=== PATIENT | male | born 1965 | race Caucasian/White ===

== ENCOUNTER → 2016-07-21 | Outpatient (REF) | payer BC ==
[2016-07-21 16:10] LABS: URIC ACID 5.8 MG/DL (3.5-7.2)
[2016-07-21 16:18] LABS: BASO % 0.5 % (0.0-1.0); EOS # 0.2 K/mm3 (0.0-0.50); EOS % 2.8 % (0.0-3.0); LARGE UNSTAINED CELL # 0.1 K/mm3 (0.0-0.4); LARGE UNSTAINED CELL % 1.5 % (0.0-4.0); LYMPH # 2.7 K/mm3 (1.5-4.5); MEAN CORPUSCULAR HEMOGLOBIN 29.1 pg (27.0-33.0); MEAN CORPUSCULAR HGB CONC 33.2 g/dl (32.0-36.5); MEAN CORPUSCULAR VOLUME 87.7 fl (80.0-96.0); MONO # 0.7 K/mm3 (0.0-0.8); MONO % 8.5 % (0.0-5.0); NEUTROPHILS % 57.6 % (36.0-66.0); PLATELET COUNT, AUTOMATED 433 k/mm3 (150-450); RED CELL DISTRIBUTION WIDTH 12.7 % (11.5-14.5); WHITE BLOOD COUNT 8.7 K/mm3 (4.0-10.0)
[2016-07-21 17:02] LABS: ERYTHROCYTE SEDIMENTATION RATE 4 mm/hr (0-20)
[2016-07-24 00:08] LABS: Lyme Disease IgG/IgM Antibodie <0.91 ISR (0.00-0.90); Lyme Disease IgM Ab Quantitati <0.80 index (0.00-0.79)
== END ==
LOC: M LABDRAW1 15:38
PROVIDERS: ATTEND Physician Assistant Surgical
DX: M79.645 Pain in left finger(s) (principal)

== ENCOUNTER → 2016-08-04 | Outpatient (REF) | payer BC ==
[2016-08-04 14:14] LABS: ALBUMIN 3.7 GM/DL (3.2-5.2); ALBUMIN/GLOBULIN RATIO 1.12 (1.00-1.93); ALKALINE PHOSPHATASE 52 U/L (45-117); ALT/SGPT 47 U/L (12-78); ANION GAP 8 MEQ/L (8-16); AST/SGOT 21 U/L (15-37); BILIRUBIN,TOTAL 0.6 MG/DL (0.2-1.0); BLOOD UREA NITROGEN 13 MG/DL (7-18); CALCIUM LEVEL 9.1 MG/DL (8.5-10.1); CARBON DIOXIDE LEVEL 28 MEQ/L (21-32); CHLORIDE LEVEL 103 MEQ/L (98-107); CHOLESTEROL LEVEL 216 MG/DL (<200); CREATININE FOR GFR 0.92 MG/DL (0.70-1.30); GLOMERULAR FILTRATION RATE > 60.0 (>56); GLUCOSE, FASTING 126 MG/DL (70-105); POTASSIUM SERUM 4.4 MEQ/L (3.5-5.1); SODIUM LEVEL 139 MEQ/L (136-145); TRIGLYCERIDES LEVEL 155 MG/DL (<150)
== END ==
LOC: M SFHCADAM 08:19
PROVIDERS: ATTEND Physician Assistant
DX: R73.01 Impaired fasting glucose (principal); E78.4 Other hyperlipidemia; E55.9 Vitamin D deficiency, unspecified

== ENCOUNTER 2016-10-08 12:10 | Emergency (ER) | payer OTHER, BC ==
[~2016-10-08] VITALS: Ht 177.8 cm; Wt 133.3 kg
[2016-10-08 12:10] VITALS: BP 133/70
[2016-10-08] MEDS ORDERED: NAPR500T PO (13:13)
--- NOTE | 2016-10-08 13:39 | REP ---
REASON: Trauma. COMPARISON: None. 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 There is no acute fracture or dislocation. IMPRESSION: Mild chronic changes. Signed by Emilio Wu DO 10/08/2016 02:18 P
== END 2016-10-08 13:59 | disposition home or self-care (01) ==
LOC: M ED 13:29
DX: S46.901A Unspecified injury of unspecified muscle, fascia and tendon at shoulder and upper arm level, right arm, initial encounter (principal); X50.0XXA Overexertion from strenuous movement or load, initial encounter; Y92.89 Other specified places as the place of occurrence of the external cause; Y93.89 Activity, other specified; Y99.0 Civilian activity done for income or pay; Z88.6 Allergy status to analgesic agent

== ENCOUNTER 2017-05-09 10:51 | Emergency (ER) | payer OTHER, BC | END 2017-05-09 13:29 | disposition home or self-care (01) | LOC: M ED 10:51 | DX: M25.512 Pain in left shoulder (principal); S16.1XXA Strain of muscle, fascia and tendon at neck level, initial encounter; W17.89XA Other fall from one level to another, initial encounter; Y92.481 Parking lot as the place of occurrence of the external cause; Y93.89 Activity, other specified; M19.012 Primary osteoarthritis, left shoulder; Z88.8 Allergy status to other drugs, medicaments and biological substances | CPT/HCPCS: 73030 ==

== ENCOUNTER → 2018-12-20 | Outpatient (REF) | payer BC, OTHER ==
[~2018-12-20] MED LIST: NAPR-837 PO
[2018-12-20 14:17] LABS: MEAN CORPUSCULAR HEMOGLOBIN 30.1 pg (27.0-33.0); MEAN CORPUSCULAR HGB CONC 33.3 g/dl (32.0-36.5); MEAN CORPUSCULAR VOLUME 90.4 fl (80.0-96.0); PLATELET COUNT, AUTOMATED 418 10^3/uL (150-450); RED BLOOD COUNT 4.98 10^6/uL (4.30-6.10); WHITE BLOOD COUNT 7.7 10^3/uL (4.0-10.0)
[2018-12-20 14:35] LABS: ALBUMIN 3.7 GM/DL (3.2-5.2); ALT/SGPT 35 U/L (12-78); BILIRUBIN,TOTAL 0.3 MG/DL (0.2-1.0); BLOOD UREA NITROGEN 20 MG/DL (7-18); CALCIUM LEVEL 9.5 MG/DL (8.5-10.1); CARBON DIOXIDE LEVEL 27 MEQ/L (21-32); CHLORIDE LEVEL 106 MEQ/L (98-107); CHOLESTEROL LEVEL 177 MG/DL (<200); CHOLESTEROL RISK RATIO 4.116 (<5); CREATININE FOR GFR 0.95 MG/DL (0.70-1.30); GLOMERULAR FILTRATION RATE > 60.0 (>56); GLUCOSE, FASTING 117 MG/DL (70-100); HDL CHOLESTEROL 43 MG/DL (>40); LDL CHOLESTEROL 114 MG/DL (<100); NON-HDL-C 134 MG/DL; POTASSIUM SERUM 4.7 MEQ/L (3.5-5.1); SODIUM LEVEL 140 MEQ/L (136-145); TOTAL PROTEIN 7.1 GM/DL (6.4-8.2); TRIGLYCERIDES LEVEL 100 MG/DL (<150)
[2018-12-20 15:51] LABS: HEMOGLOBIN A1c 5.8 %
== END ==
LOC: M SFHCADAM 07:45
PROVIDERS: ATTEND Physician Assistant
DX: E78.5 Hyperlipidemia, unspecified (principal)

== ENCOUNTER → 2019-01-18 | Outpatient (CLI) | payer BC ==
[~2019-01-18] MED LIST changes: +PROHANCE 279.3MG/ML 15ML VIAL (A9576) As Ordered ONE; +PROHANCE 279.3MG/ML 5ML VIAL (A9576) As Ordered ONE
--- NOTE | 2019-01-19 09:35 | REP ---
MRI SHOULDER WITH AND WITHOUT CONTRAST: TECHNIQUE: Axial T2 fat sat, gradient echo, sagittal oblique T2 fat sat, coronal oblique T1, T2 fat sat. Coronal oblique T1 fat sat, post IV gadolinium coronal oblique and sagittal oblique T1 fat sat, with intravenous administration of 20 mL ProHance. CLINICAL HISTORY: Mass above the acromioclavicular joint. 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 Total transverse diameter is approximately 4.3 cm with craniocaudal thickness of about 10 mm. This is in a subcutaneous location above the acromion. There is a complete full thickness tear of the supraspinatus tendon with retraction approximately 4 cm. Full thickness incomplete tear of the subscapularis tendon is noted. Infraspinatus and teres minor appear intact. There are moderate hypertrophic degenerative changes of the acromioclavicular joint with a type 2 acromion. Biceps tendon is seen in the bicipital groove, but visualization is lost superiorly at the mid humeral head level. I do not visualize a clear insertion onto the biceps labral complex. I suspect at least a partial tear of the proximal biceps tendon. The biceps labral complex is frayed. There is no Hill-Sachs deformity. The deltoid muscle demonstrates no abnormal signal. There is no other evidence of a labral tear. No paralabral cyst is seen. Mild subchondral marrow edema and cystic changes seen in the superolateral humeral head. There is mild subchondral marrow edema in the distal clavicle. There is mild to moderate chondromalacia of the glenoid with mild subchondral cystic change superiorly and somewhat posteriorly. There is mild fluid in the glenohumeral joint with a relatively moderate amount of fluid in the subacromial bursa. IMPRESSION: Complete full thickness tear supraspinatus tendon with retraction of approximately 4 cm. There is a full thickness incomplete tear of the subscapularis tendon. There is moderate hypertrophic degenerative change of the acromioclavicular joint with a type 2 acromion. I suspect at least a partial tear of the proximal biceps tendon with fraying of the biceps labral complex. Otherwise no evidence of a labral tear. There are mild subchondral cystic changes and marrow edema in the superolateral humeral head, with mild to moderate chondromalacia at the glenohumeral joint and mild subchondral cystic change in the superior glenoid posteriorly. Joint fluid extends into the subacromial bursa. Palpable lump above the acromion corresponds to a simple oval lobulated lipoma, with no area of abnormal enhancement. Electronically Signed by Liam Holland MD 01/19/2019 05:48 P
== END ==
LOC: M RAD 15:48
PROVIDERS: ATTEND Orthopaedic Surgery Hand Surgery
DX: S46.912A Strain of unspecified muscle, fascia and tendon at shoulder and upper arm level, left arm, initial encounter (principal); X58.XXXA Exposure to other specified factors, initial encounter; Y92.89 Other specified places as the place of occurrence of the external cause
CPT/HCPCS: 73223; A9576

== ENCOUNTER → 2019-03-02 | Outpatient (REF) | payer BC ==
[~2019-03-02] MED LIST changes: -PROHANCE 279.3MG/ML 15ML VIAL (A9576) As Ordered ONE; -PROHANCE 279.3MG/ML 5ML VIAL (A9576) As Ordered ONE
== END ==
LOC: M LAB REF 15:44
PROVIDERS: ATTEND Orthopaedic Surgery Hand Surgery
DX: D17.22 Benign lipomatous neoplasm of skin and subcutaneous tissue of left arm (principal)

== ENCOUNTER → 2019-12-27 | Outpatient (REF) | payer BC ==
[2019-12-27 13:16] LABS: HEMOGLOBIN 14.5 g/dl (13.5-17.5); MEAN CORPUSCULAR HEMOGLOBIN 29.3 pg (27.0-33.0); MEAN CORPUSCULAR VOLUME 88.9 fl (80.0-96.0); PLATELET COUNT, AUTOMATED 423 10^3/uL (150-450); RED BLOOD COUNT 4.95 10^6/uL (4.30-6.10); WHITE BLOOD COUNT 7.5 10^3/uL (4.0-10.0)
[2019-12-27 13:28] LABS: ALBUMIN 3.8 GM/DL (3.2-5.2); ALT/SGPT 35 U/L (12-78); BILIRUBIN,TOTAL 0.5 MG/DL (0.2-1.0); BLOOD UREA NITROGEN 21 MG/DL (7-18); CALCIUM LEVEL 9.3 MG/DL (8.5-10.1); CARBON DIOXIDE LEVEL 29 MEQ/L (21-32); CHLORIDE LEVEL 105 MEQ/L (98-107); CHOLESTEROL LEVEL 180 MG/DL (<200); CREATININE FOR GFR 0.98 MG/DL (0.70-1.30); GLOMERULAR FILTRATION RATE > 60.0 (>56); GLUCOSE, FASTING 113 MG/DL (70-100); HDL CHOLESTEROL 36 MG/DL (>40); LDL CHOLESTEROL 123 MG/DL (<100); NON-HDL-C 144 MG/DL; POTASSIUM SERUM 4.8 MEQ/L (3.5-5.1); SODIUM LEVEL 138 MEQ/L (136-145); TOTAL PROTEIN 7.3 GM/DL (6.4-8.2); TRIGLYCERIDES LEVEL 103 MG/DL (<150)
== END ==
LOC: M SFHCADAM 12:43
PROVIDERS: ATTEND Physician Assistant
DX: Z00.00 Encounter for general adult medical examination without abnormal findings (principal); R73.01 Impaired fasting glucose; E78.5 Hyperlipidemia, unspecified

== ENCOUNTER → 2021-08-05 | Outpatient (REF) | payer BC ==
[2021-08-05 12:46] LABS: HEMATOCRIT 44.3 % (42.0-52.0); HEMOGLOBIN 14.7 g/dl (13.5-17.5); MEAN CORPUSCULAR HEMOGLOBIN 29.6 pg (27.0-33.0); MEAN CORPUSCULAR HGB CONC 33.2 g/dl (32.0-36.5); MEAN CORPUSCULAR VOLUME 89.3 fl (80.0-96.0); PLATELET COUNT, AUTOMATED 396 10^3/uL (150-450); RED BLOOD COUNT 4.96 10^6/uL (4.30-6.10); WHITE BLOOD COUNT 6.9 10^3/uL (4.0-10.0)
[2021-08-05 13:17] LABS: ALBUMIN 3.7 GM/DL (3.2-5.2); ALT/SGPT 36 U/L (12-78); BILIRUBIN,TOTAL 0.4 MG/DL (0.2-1.0); BLOOD UREA NITROGEN 17 MG/DL (7-18); CARBON DIOXIDE LEVEL 26 MEQ/L (21-32); CHLORIDE LEVEL 107 MEQ/L (98-107); CHOLESTEROL LEVEL 169 MG/DL (<200); CHOLESTEROL RISK RATIO 4.225 (<5); CREATININE FOR GFR 0.91 MG/DL (0.70-1.30); GLOMERULAR FILTRATION RATE > 60.0 (>56); GLUCOSE, FASTING 115 MG/DL (70-100); HDL CHOLESTEROL 40 MG/DL (>40); LDL CHOLESTEROL 110 MG/DL (<100); NON-HDL-C 129 MG/DL; POTASSIUM SERUM 4.4 MEQ/L (3.5-5.1); SODIUM LEVEL 138 MEQ/L (136-145); TRIGLYCERIDES LEVEL 94 MG/DL (<150)
[2021-08-05 13:39] LABS: HEMOGLOBIN A1c 5.7 %
== END ==
LOC: M SFHCADAM 07:52
PROVIDERS: ATTEND Physician Assistant
DX: E55.9 Vitamin D deficiency, unspecified (principal); Z12.5 Encounter for screening for malignant neoplasm of prostate; R73.01 Impaired fasting glucose; E78.5 Hyperlipidemia, unspecified

== ENCOUNTER → 2021-09-10 | Outpatient (CLI) | payer BC | LOC: M ADAMS 10:33 | PROVIDERS: ATTEND Physician Assistant | DX: M25.561 Pain in right knee (principal) ==

== ENCOUNTER 2021-09-17 07:49 | Emergency (ER) | payer BC ==
[~2021-09-17] VITALS: Ht 180.3 cm; Wt 115.3 kg
[2021-09-17] MEDS ORDERED: KETOROLAC 60MG 2ML VIAL IM ONE (11:35)
[2021-09-17 11:57] VITALS: BP 134/79
== END 2021-09-17 12:35 | disposition home or self-care (01) ==
LOC: M ED 07:49
DX: M17.11 Unilateral primary osteoarthritis, right knee (principal); Z88.5 Allergy status to narcotic agent; Z88.8 Allergy status to other drugs, medicaments and biological substances
CPT/HCPCS: 96372; 99284; J1885

== ENCOUNTER → 2023-01-20 | Outpatient (REF) | payer BC ==
[2023-01-20 12:53] LABS: HEMATOCRIT 46.6 % (42.0-52.0); HEMOGLOBIN 15.1 g/dl (13.5-17.5); MEAN CORPUSCULAR HEMOGLOBIN 29.5 pg (27.0-33.0); MEAN CORPUSCULAR HGB CONC 32.4 g/dl (32.0-36.5); MEAN CORPUSCULAR VOLUME 91.2 fl (80.0-96.0); PLATELET COUNT, AUTOMATED 429 10^3/uL (150-450); RED BLOOD COUNT 5.11 10^6/uL (4.30-6.10); WHITE BLOOD COUNT 7.5 10^3/uL (4.0-10.0)
[2023-01-20 13:20] LABS: ALBUMIN 3.7 G/DL (3.2-5.2); ALKALINE PHOSPHATASE 50 U/L (46-116); ALT/SGPT 31 U/L (7.0-40); AST/SGOT 18 U/L (<34); BILIRUBIN,TOTAL 0.4 MG/DL (0.3-1.2); BLOOD UREA NITROGEN 18 MG/DL (9-23); CALCIUM LEVEL 9.6 MG/DL (8.5-10.1); CARBON DIOXIDE LEVEL 29 MMOL/L (20-31); CHLORIDE LEVEL 106 MMOL/L (98-107); CHOLESTEROL LEVEL 188 MG/DL (<200); CHOLESTEROL RISK RATIO 4.73 (<5); CREATININE FOR GFR 0.86 MG/DL (0.70-1.30); GLOMERULAR FILTRATION RATE > 60.0 (>56); GLUCOSE, FASTING 119 MG/DL (60-100); HDL CHOLESTEROL 39.7 MG/DL (>40); LDL CHOLESTEROL 126.9 MG/DL (<100); NON-HDL-C 148.3 MG/DL; POTASSIUM SERUM 4.8 MMOL/L (3.5-5.1); SODIUM LEVEL 138 MMOL/L (136-145); TOTAL PROTEIN 6.9 G/DL (5.7-8.2); TRIGLYCERIDES LEVEL 107 MG/DL (<150)
[2023-01-20 13:21] LABS: THYROID STIMULATING HORMONE 3.135 uIU/ML (0.55-4.78); TOTAL 25(OH) VITAMIN D 45.7 NG/ML (20.0-100.0)
[2023-01-20 13:22] LABS: FREE T4 1.07 NG/DL (0.89-1.76)
[2023-01-20 13:28] LABS: HEMOGLOBIN A1c 5.8 % (4.0-6.0)
== END ==
LOC: M SFHCADAM 07:48
PROVIDERS: ATTEND Physician Assistant
DX: M17.11 Unilateral primary osteoarthritis, right knee (principal); E55.9 Vitamin D deficiency, unspecified; E78.5 Hyperlipidemia, unspecified; R73.01 Impaired fasting glucose; R53.82 Chronic fatigue, unspecified

== ENCOUNTER → 2023-01-27 | Outpatient (REF) | payer BC | LOC: M SFHCADAM 10:17 | PROVIDERS: ATTEND Physician Assistant | DX: Z12.5 Encounter for screening for malignant neoplasm of prostate (principal) ==

== ENCOUNTER → 2023-04-17 | Outpatient (REF) | payer BC | LOC: M LAB REF 10:32 | PROVIDERS: ATTEND Physician Assistant Medical | DX: R50.9 Fever, unspecified (principal) ==

== ENCOUNTER → 2024-01-26 | Outpatient (REF) | payer BC ==
[2024-01-26 13:16] LABS: PSA SCREENING 1.02 NG/ML (< 4.00)
[2024-01-26 13:19] LABS: ALBUMIN 3.6 G/DL (3.2-5.2); ALKALINE PHOSPHATASE 62 U/L (46-116); ALT/SGPT 28 U/L (7.0-40); AST/SGOT 14 U/L (<34); BILIRUBIN,TOTAL 0.5 MG/DL (0.3-1.2); BLOOD UREA NITROGEN 20 MG/DL (9-23); CALCIUM LEVEL 9.7 MG/DL (8.5-10.1); CARBON DIOXIDE LEVEL 28 MMOL/L (20-31); CHLORIDE LEVEL 107 MMOL/L (98-107); CHOLESTEROL LEVEL 172 MG/DL (<200); CHOLESTEROL RISK RATIO 4.92 (<5); CREATININE FOR GFR 0.79 MG/DL (0.70-1.30); GLOMERULAR FILTRATION RATE > 60.0 (>56); GLUCOSE, FASTING 125 MG/DL (60-100); HDL CHOLESTEROL 34.9 MG/DL (>40); HEMATOCRIT 44.9 % (42.0-52.0); HEMOGLOBIN 14.5 g/dl (13.5-17.5); LDL CHOLESTEROL 120.9 MG/DL (<100); MEAN CORPUSCULAR HEMOGLOBIN 28.9 pg (27.0-33.0); MEAN CORPUSCULAR HGB CONC 32.3 g/dl (32.0-36.5); MEAN CORPUSCULAR VOLUME 89.6 fl (80.0-96.0); NON-HDL-C 137.1 MG/DL; PLATELET COUNT, AUTOMATED 415 10^3/uL (150-450); POTASSIUM SERUM 4.4 MMOL/L (3.5-5.1); RED BLOOD COUNT 5.01 10^6/uL (4.30-6.10); SODIUM LEVEL 138 MMOL/L (136-145); TOTAL PROTEIN 6.8 G/DL (5.7-8.2); TRIGLYCERIDES LEVEL 81 MG/DL (<150); WHITE BLOOD COUNT 6.6 10^3/uL (4.0-10.0)
[2024-01-26 13:20] LABS: THYROID STIMULATING HORMONE 2.521 uIU/ML (0.55-4.78)
[2024-01-26 13:21] LABS: FREE T4 1.17 NG/DL (0.89-1.76)
[2024-01-26 15:51] LABS: HEMOGLOBIN A1c 5.6 % (4.0-6.0)
== END ==
LOC: M SFHCADAM 07:42
PROVIDERS: ATTEND Physician Assistant
DX: Z12.5 Encounter for screening for malignant neoplasm of prostate (principal); Z00.00 Encounter for general adult medical examination without abnormal findings; R73.03 Prediabetes; E78.5 Hyperlipidemia, unspecified; Z12.11 Encounter for screening for malignant neoplasm of colon; Z23 Encounter for immunization

== ENCOUNTER → 2024-02-02 | Outpatient (CLI) | payer BC | LOC: M ADAMS 09:52 | PROVIDERS: ATTEND Physician Assistant | DX: R22.32 Localized swelling, mass and lump, left upper limb (principal) ==

== ENCOUNTER → 2025-01-31 | Outpatient (REF) | payer BC ==
[2025-01-31 14:44] LABS: PSA SCREENING 1.05 NG/ML (< 4.00)
[2025-01-31 14:47] LABS: ALT/SGPT 27 U/L (7.0-40); AST/SGOT 19 U/L (<34); CALCIUM LEVEL 9.4 MG/DL (8.5-10.1); CARBON DIOXIDE LEVEL 25 MMOL/L (20-31); CHLORIDE LEVEL 105 MMOL/L (98-107); CHOLESTEROL LEVEL 185 MG/DL (<200); CHOLESTEROL RISK RATIO 4.46 (<5); CREATININE FOR GFR 0.80 MG/DL (0.70-1.30); GLOMERULAR FILTRATION RATE > 90.0 (>56); LDL CHOLESTEROL 128.0 MG/DL (<100); NON-HDL-C 143.6 MG/DL; POTASSIUM SERUM 4.5 MMOL/L (3.5-5.1); SODIUM LEVEL 140 MMOL/L (136-145); TRIGLYCERIDES LEVEL 78 MG/DL (<150)
[2025-01-31 14:50] LABS: PLATELET COUNT, AUTOMATED 419 10^3/uL (150-450)
[2025-01-31 15:16] LABS: ESTIMATED AVERAGE GLUCOSE 128.0 MG/DL (60-110)
== END ==
LOC: M SFHCADAM 06:37
PROVIDERS: ATTEND Physician Assistant
DX: E78.5 Hyperlipidemia, unspecified (principal); R73.01 Impaired fasting glucose; E55.9 Vitamin D deficiency, unspecified; Z12.5 Encounter for screening for malignant neoplasm of prostate
CPT/HCPCS: 80053; 80061; 83036; 85027; G0103

== ENCOUNTER 2025-02-27 16:01 | Emergency (ER) | payer BC ==
[~2025-02-27] VITALS: Ht 180.3 cm; Wt 112.6 kg
[2025-02-27] MEDS ORDERED: THERTAB52 PO (16:11)
[2025-02-27] MEDS ORDERED: VITA100093 PO (16:11)
[2025-02-27 17:38] LABS: KETONE, URINE AUTO RFX NEGATIVE (NEGATIVE); LEUKOCYTE ESTERASE UR AUTO RFX NEGATIVE (NEGATIVE); NITRITE, URINE AUTO RFX NEGATIVE (NEGATIVE); RBC, URINE AUTO RFX 1 /HPF (0-3); SQUAM EPITHELIAL CELL UR AURFX 0 /HPF (0-6); WBC, URINE AUTO RFX 0 /HPF (0-3)
[2025-02-27 17:49] LABS: BASO # 0.1 10^3/uL (0.0-0.2); BASO % 0.8 % (0.0-1.0); EOS # 0.3 10^3/uL (0.0-0.5); EOS % 2.8 % (0.0-3.0); LYMPH # 3.3 10^3/uL (1.5-5.0); LYMPH % 27.4 % (24.0-44.0); MONO # 1.3 10^3/uL (0.0-0.8); MONO % 11.1 % (2.0-8.0); NEUTROPHILS # 6.8 10^3/uL (1.5-8.5); NEUTROPHILS % 57.6 % (36.0-66.0); PLATELET COUNT, AUTOMATED 410 10^3/uL (150-450)
[2025-02-27 18:01] LABS: ALT/SGPT 28 U/L (7.0-40); AST/SGOT 26 U/L (<34); CALCIUM LEVEL 9.9 MG/DL (8.3-10.6); CARBON DIOXIDE LEVEL 26 MMOL/L (20-31); CHLORIDE LEVEL 102 MMOL/L (98-107); CREATININE FOR GFR 1.08 MG/DL (0.70-1.30); GLOMERULAR FILTRATION RATE 78.6 (>49); POTASSIUM SERUM 4.0 MMOL/L (3.5-5.1); SODIUM LEVEL 137 MMOL/L (136-145)
[2025-02-27] MEDS ORDERED: ISOVUE-370 76% 100 ML VIAL As Ordered ONE (20:39)
[2025-02-27 21:48] VITALS: BP 140/93; TEMP 97.8; O2SAT 97
== END 2025-02-27 21:49 | disposition home or self-care (01) ==
LOC: M ED 16:01
DX: K40.90 Unilateral inguinal hernia, without obstruction or gangrene, not specified as recurrent (principal); Z88.5 Allergy status to narcotic agent; Z88.6 Allergy status to analgesic agent; Z79.810 Long term (current) use of selective estrogen receptor modulators (SERMs)
CPT/HCPCS: 36415; 74177; 76870; 80048; 80076; 81001; 83690; 85025; 93976; 99284; Q9967